=== PATIENT | female | born 1975 | race Two or more races ===

== ENCOUNTER 2022-12-11 09:27 | Inpatient (IN) | payer OTHER, SELFPAY ==
--- NOTE | ~2022-12-11 | CT_ITS ---
EXAMINATION: CT HEAD WITHOUT CONTRAST CLINICAL INFORMATION: Headache COMPARISON: None available. TECHNIQUE: Contiguous axial imaging was performed from the skull base to vertex without intravenous administration of contrast. This CT examination was performed using dose optimization techniques as appropriate, variously including the following: *Automated exposure control *Adjustment of mA and/or kV according to patient size (this includes techniques or standardized protocols for targeted exams where dose is matched to indication/reason for exam; i.e. extremities or head) *Use of iterative reconstruction technique DLP: 627.06 mGy-cm FINDINGS: The ventricles and sulci are normal in size and configuration. No acute hemorrhage, mass effect or shift is evident. Lee-white differentiation is maintained. In the posterior fossa, the brainstem, cerebellum and fourth ventricle image normally. The orbits and calvarium are intact. The paranasal sinuses and mastoid air cells are well pneumatized and clear. CT/CT head/brain wo IV con IMPRESSION: 1. Unremarkable noncontrast brain CT. No acute hemorrhage, mass effect or shift.
--- NOTE | ~2022-12-11 | CT_ITS ---
EXAMINATION: CT CERVICAL SPINE WITHOUT CONTRAST CLINICAL INFORMATION: Pain COMPARISON: None available. TECHNIQUE: Multiple helical unenhanced images were obtained through the cervical spine. Reformatted coronal and sagittal images were acquired from the helical data set. This CT examination was performed using dose optimization techniques as appropriate, variously including the following: *Automated exposure control *Adjustment of mA and/or kV according to patient size (this includes techniques or standardized protocols for targeted exams where dose is matched to indication/reason for exam; i.e. extremities or head) *Use of iterative reconstruction technique DLP: 497.28 mGy-cm FINDINGS: CT examination of the cervical spine shows no prevertebral soft tissue swelling. Vertebral body height and alignment are maintained. No fracture or subluxation is evident. The odontoid process, atlantoaxial and cervical thoracic junctions are intact. There is a 16 mm mass in the lower pole the left thyroid lobe. CT/CT cervical spine wo IV con IMPRESSION: 1. No acute fracture or subluxation of the cervical spine. 2. Left thyroid lobe 16mm mass, for which dedicated thyroid ultrasound is recommended for further evaluation and characterization. Fleischner guidelines were followed.
--- NOTE | ~2022-12-11 | XR_ITS ---
EXAMINATION: XR CHEST CLINICAL INFORMATION: Chest pain. COMPARISON: None available. TECHNIQUE: 2 views of the chest were obtained. FINDINGS: No significant abnormality is noted involving the heart, lungs, mediastinum, bony thorax or soft tissues. XR/XR chest 2V IMPRESSION: Unremarkable examination.
[2022-12-11 10:23] VITALS: BP 132/95; PULSE 76; RESP 12; O2SAT 95; BMI 32.4
[2022-12-11 13:05] VITALS: BP 142/88; PULSE 75; RESP 18; O2SAT 98
--- NOTE | 2022-12-11 13:14 | PC.NURSE ---
pt is alert and oriented, skin appropriate for ethnicity, respirations even and unlabored, pt reports having rashes that comes and goes while residing at the domestic correction-pt just found out that her biological mother just passes away, feeling depressed, not coming out of her room, feels like she might need her medications adjusted, denies si/hi. reported to have intermittent chest pain last week under her left breast-denies chest pain at this time, intermittent cough and vomiting.
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
--- NOTE | 2022-12-11 13:36 | ECG_ITS ---
Test Reason : MED CLEARANCE Blood Pressure : / mmHG Vent. Rate : 058 BPM Atrial Rate : 058 BPM P-R Int : 152 ms QRS Dur : 088 ms QT Int : 448 ms P-R-T Axes : 010 045 032 degrees QTc Int : 439 ms Sinus bradycardia Otherwise normal ECG No previous ECGs available Referred By: Anyi Weems Electronically Signed By:WILLA PEREZ
[2022-12-11 14:03] LABS: MANUAL DIFF FLAG NO
[2022-12-11 14:05] LABS: Basophils Absolute Auto 0.1 X10*3/uL (0.0-0.2); Basophils Percent Auto 0.9 % (0-2); Eosinophils Absolute Auto 0.4 X10*3/uL (0.0-0.4); Eosinophils Percent Auto 4.9 % (0-4); Hematocrit 37.1 % (37.0-47.0); Hemoglobin 12.9 g/dl (12.0-16.0); Imm Gran Abs Auto 0.03 X10*3/uL (0.00-0.03); Imm Gran Pct Auto 0.3 % (0.0-0.4); Lymphocytes Absolute Auto 2.7 X10*3/uL (1.2-4.9); Lymphocytes Percent Auto 30.1 % (20-40); Mean Corpuscular HGB Conc 34.8 g/dl (31.0-35.0); Mean Corpuscular Hemoglobin 30.9 pg (27.0-33.0); Mean Corpuscular Volume 88.8 fL (80.0-98.0); Mean Platelet Volume 10.2 fL (9.4-12.3); Monocytes Absolute Auto 0.4 X10*3/uL (0.1-1.2); Monocytes Percent Auto 4.4 % (2-11); Neutrophils Absolute Auto 5.3 x10*3/uL (2.0-8.3); Neutrophils Percent Auto 59.4 % (45-73); Platelet Count 282 X10*3/uL (160-400); Red Blood Count 4.18 X10*6/uL (4.20-5.50); Red Cell Distribution Width 12.2 % (11.0-16.0); White Blood Count 8.9 X10*3/uL (4.8-10.8)
[2022-12-11 14:15] LABS: Appearance Urine Clear; Color Urine Yellow; Glucose Urine UA Negative (Negative); Leukocyte Esterase Urine Negative (Negative); Nitrite Urine Negative (Negative); PH 5.5 (5.0-9.0); Specific Gravity - Urine 1.025 (1.005-1.025); Urine Blood Negative (Negative); Urine Ketones Negative (Negative); Urine Protein Negative (Neg-Trace)
[2022-12-11 14:18] LABS: Ethanol < 10 mg/dL
[2022-12-11 14:28] LABS: Alanine Aminotransferase 16 U/L (0-31); Albumin Level 3.7 g/dL (3.5-5.0); Alkaline Phosphatase 118 U/L (39-117); Anion Gap 9 (12-20); Aspartate Amino Transferase 22 U/L (5-31); Bilirubin Direct 0.2 mg/dL (0.0-0.5); Bilirubin Total 0.3 mg/dL (0.0-1.0); Blood Urea Nitrogen 9 mg/dL (9-16); Calcium 8.8 mg/dL (8.4-10.2); Carbon Dioxide 25 mmol/L (22-29); Chloride 109 mmol/L (96-108); Estimated Glomerular Filt Rate > 60; Glucose Random 104 mg/dL (60-115); Lipase 27 U/L (8-78); Magnesium 1.9 mg/dL (1.6-2.6); Sodium 139 mmol/L (135-145); Total Protein 6.9 g/dL (6.5-8.0); Troponin-I High Sensitivity < 2.7 ng/L (<3.5-17.0)
[2022-12-11 14:34] LABS: Amphetamine Screen Urine Not Detected (Not Detect); Barbiturates, Urine Not Detected (Not Detect); Benzodiazepines Screen Urine Not Detected (Not Detect); Cannabinoid Screen Urine Not Detected (Not Detect); Cocaine Screen Urine POSITIVE (Not Detect); Fentanyl, urine Not Detected (Not Detect); Opiate Screen Urine Not Detected (Not Detect); Phencyclidine Screen Urine Not Detected (Not Detect)
[2022-12-11 14:39] LABS: TSH reflex Free T4 0.85 uIU/mL (0.32-4.0)
[2022-12-11 18:57] VITALS: BP 123/86; PULSE 70; RESP 16; TEMP 36.2; O2SAT 100
[2022-12-11 18:59] LABS: COVID-19 Test Negative (Negative); IDNOW Serial# 08D9AD1C
[2022-12-11 23:45] VITALS: BP 125/81; PULSE 67; RESP 16; TEMP 36.3; O2SAT 98
[2022-12-12] MEDS: Prazosin HCL 1 MG CAPSULE 2 MG PO (01:24)
[2022-12-12] MEDS: Acetaminophen 325 MG TABLET 650 MG PO (01:25)
[2022-12-12] MEDS: Melatonin 3 MG TABLET 6 MG PO ×2 (01:25→20:34)
[2022-12-12] MEDS: Mirtazapine 7.5 MG TABLET PO (01:35)
[2022-12-12] MEDS: QUEtiapine Fumarate 100 MG TABLET PO (01:37)
[2022-12-12] MEDS: Ondansetron ODT 4 MG TAB.RAPDIS TRANSLINGU ×2 (03:36→11:11)
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
[2022-12-12 09:05] VITALS: BP 81/48; PULSE 76; RESP 16; TEMP 36.2; O2SAT 97
[2022-12-12 09:09] LABS: Alanine Aminotransferase 16 U/L (0-31); Albumin Level 3.6 g/dL (3.5-5.0); Alkaline Phosphatase 117 U/L (39-117); Anion Gap 11 (12-20); Aspartate Amino Transferase 17 U/L (5-31); Bilirubin Total 0.3 mg/dL (0.0-1.0); Blood Urea Nitrogen 14 mg/dL (9-16); Carbon Dioxide 25 mmol/L (22-29); Chloride 108 mmol/L (96-108); Cholesterol 152 mg/dL (<200); Creatinine Clr Calc Pharmacy 94.6; Estimated Glomerular Filt Rate > 60; Glucose Fasting 110 mg/dL (60-99); HDL Cholesterol 45 mg/dL (>40); LDL Cholesterol Calculated 89 mg/dL (<100); Potassium 4.5 mmol/L (3.3-5.1); Sodium 139 mmol/L (135-145); Total Protein 6.5 g/dL (6.5-8.0); Triglycerides 91 mg/dL (<150)
--- NOTE | 2022-12-12 09:30 | PC.NURSE ---
pt c/o dizziness, nausea. VS of 81/48, HR of 76. Orthos completed. Reported that she will get a black blanket like over my vision . Provider notified during morning rounds. No new orders at this time. Pt given fresh water and encouraged to drink. Resting quietly in bed at this tome.
[2022-12-12 09:47] VITALS: BP 83/79; BP 84/49; PULSE 65; PULSE 71
[2022-12-12 09:48] VITALS: BP 79/51; PULSE 83
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
[2022-12-12 11:01] VITALS: BP 104/58; PULSE 63
--- NOTE | 2022-12-12 12:53 | PM.EVENT ---
Event Note Date of Service: 12/14/22 Event Note: Medical consult for patient with hypotension. Patient's BP 81/48 measured this morning, with repeats as low as 79/51. Patient currently at 104/58. Patient has been symptomatic: Complaints of lightheadedness, dizziness. States last night had a near syncopal episode. Patient currently on Seroquel and prazosin. Patient states she has been taking his medications since June and been mostly compliant, however records indicate was only given 14 tablets of prazosin in June and has not had a refill since then. Patient was given prazosin 2 mg last night at 01:24. Patient does not appear hypovolemic, does not report any significant GI losses. Hypotension most likely medication induced from prazosin. Will hold prazosin and quetiapine for now. Encourage p.o. fluids. Monitor BP closely. Will continue following for now. Time Spent With Patient Time: Total time managing care of this patient today ____ minutes.
[2022-12-12 19:55] VITALS: BP 95/60; PULSE 75; RESP 18; TEMP 36.6; O2SAT 97
[2022-12-12] MEDS: NaPROXEN 500 MG TABLET PO (20:34)
[2022-12-12] MEDS: Mirtazapine 15 MG TABLET PO (20:34)
[2022-12-12] MEDS: Milk of Magnesia 30 ML ORAL.SUSP PO (21:13)
--- NOTE | 2022-12-13 00:06 | PC.NURSE ---
Ivy was admitted to [facility] for safety, medication management and stabilization, diagnosis MDD and CAMDEN. Ivy is post fall, BP was on the low side of normal, denies dizziness, reports drinking fluids, denies nausea, med adherent, ad-ciarra with steady gait. Continues on 5 min unit safety observations for falls.
[2022-12-13 08:59] VITALS: BP 108/57; PULSE 81; RESP 18; TEMP 36.8; O2SAT 99
[2022-12-13] MEDS: Escitalopram Oxalate 20 MG TABLET PO (09:04)
[2022-12-13] MEDS: Loratadine 10 MG TABLET PO (09:04)
[2022-12-13] MEDS: NaPROXEN 500 MG TABLET PO ×2 (09:04→20:16)
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
[2022-12-13 16:20] VITALS: BP 108/57; PULSE 81; O2SAT 99
[2022-12-13] MEDS: Ondansetron ODT 4 MG TAB.RAPDIS TRANSLINGU (16:44)
[2022-12-13 19:50] VITALS: BP 107/59; PULSE 68; RESP 18; TEMP 36.6; O2SAT 99
[2022-12-13] MEDS: Melatonin 3 MG TABLET 6 MG PO (20:15)
[2022-12-13] MEDS: Mirtazapine 15 MG TABLET PO ×2 (20:17→20:22)
[2022-12-14] MEDS: NaPROXEN 500 MG TABLET PO ×2 (03:08→16:52)
[2022-12-14] MEDS: Acetaminophen 325 MG TABLET 650 MG PO (05:01)
[2022-12-14] MEDS: Loratadine 10 MG TABLET PO (08:21)
[2022-12-14] MEDS: Escitalopram Oxalate 20 MG TABLET PO (08:21)
[2022-12-14 08:41] VITALS: BP 110/60; PULSE 67; RESP 20; TEMP 36.6; O2SAT 97
--- NOTE | 2022-12-14 13:55 | HO.PSYCHPN ---
Subjective Subjective Date of Service: 12/14/22 Reason For Visit: Depression Interim History: Patient reports constant pain in her knees, neck, back, hip. PT evaluated patient. Recommended knee braces. Says Armando isn't controlling her pain. Discussed Gabapentin. Patient agreeable to trial of same. Discussed risk of sedation and dizziness. Continues on 5 min checks for fall precaution. Denies SI. Continues depressed. Review of Systems Review of Systems Yes all other systems are reviewed and are negative Constitutional: Reports as per HPI Eyes: Reports as per HPI Reports as per HPI Cardiovascular: Reports as per HPI Respiratory: Reports as per HPI Gastrointestinal: Reports as per HPI Musculoskeletal: Reports as per HPI Skin/Breast: Reports as per HPI Reports as per HPI Psychiatric: Reports as per HPI Endocrine: Reports as per HPI Hematologic/Lymphatic: Reports as per HPI Allergic/Immunologic: Reports as per HPI Mental Status Exam Mental Status Exam Narrative: Pt is alert and oriented; behavior is cooperative and calm; patient is not in distress; dressed in casual attire; mood is described as depressed ; eye contact appropriate; Speech is normal rate, volume and prosody and not pressured; no psychomotor agitation/retardation present; thought process is organized and goal directed; Thought content is on tx; otherwise pertinent to relevant topics and without any delusional content, paranoid ideations or grandiosity; denies HI. Pt reports passive suicidal ideation. There is no evidence of perceptual disturbance. Patients insight and judgment are poor. Diagnostics Vital Signs (24Hr): Vital Signs - 24 hr 12/13/22 16:20 12/13/22 19:50 12/14/22 08:41 Temperature 97.8 F 97.9 F Pulse Rate 81 68 67 Respiratory Rate 18 20 Blood Pressure 108/57 L 107/59 L 110/60 Pulse Oximetry 99 99 97 Oxygen Delivery Method Room Air Room Air BMI result Body Mass Index 32.4 Labs 12/11/22 13:59 12/12/22 08:39 Imaging Radiology Impressions: ITS Impressions Chest X-Ray 12/11/22 14:24 IMPRESSION: Unremarkable examination. Cervical Spine CT 12/11/22 14:48 IMPRESSION: 1. No acute fracture or subluxation of the cervical spine. 2. Left thyroid lobe 16mm mass, for which dedicated thyroid ultrasound is recommended for further evaluation and characterization. Fleischner guidelines were followed. Head CT 12/11/22 14:48 IMPRESSION: 1. Unremarkable noncontrast brain CT. No acute hemorrhage, mass effect or shift. Medications Medications Current Medications Acetaminophen (Acetaminophen 325 Mg Tablet) 650 mg PO Q6H PRN PRN Reason: Headache/Pain Mild Scale (1-3) Last Admin: 12/14/22 05:01 Dose: 650 mg Al Hydroxide/Mg Hydroxide (Magnesium Hydrox/Alum Hydrox 30 Ml Oral.Susp) 30 ml PO Q6H PRN PRN Reason: Heartburn/Nausea Escitalopram Oxalate (Escitalopram Oxalate 20 Mg Tablet) 20 mg PO DAILY [facility] Last Admin: 12/14/22 08:21 Dose: 20 mg Gabapentin (Gabapentin 100 Mg Capsule) 200 mg PO TID KARTHIKEYAN Loratadine (Loratadine 10 Mg Tablet) 10 mg PO DAILY [facility] Last Admin: 12/14/22 08:21 Dose: 10 mg Magnesium Hydroxide (Milk Of Magnesia 30 Ml Oral.Susp) 30 ml PO DAILY PRN PRN Reason: Constipation Last Admin: 12/12/22 21:13 Dose: 30 ml Melatonin (Melatonin 3 Mg Tablet) 6 mg PO BEDTIME PRN PRN Reason: insomnia Last Admin: 12/13/22 20:15 Dose: 6 mg Mirtazapine (Mirtazapine 15 Mg Tablet) 15 mg PO BEDTIME [facility] Last Admin: 12/13/22 20:17 Dose: 15 mg Mirtazapine (Mirtazapine 15 Mg Tablet) 15 mg PO BEDTIME PRN PRN Reason: Insomnia Naproxen (Naproxen 500 Mg Tablet) 500 mg PO BID PRN PRN Reason: Pain, Moderate Last Admin: 12/14/22 03:08 Dose: 500 mg Olanzapine (Olanzapine 5 Mg Tablet) 5 mg PO Q6H PRN PRN Reason: Agitation Ondansetron HCl (Ondansetron Odt 4 Mg Tab.Rapdis) 4 mg TRANSLINGU Q6H PRN PRN Reason: nausea/vomiting Last Admin: 12/13/22 16:44 Dose: 4 mg Prazosin HCl (Prazosin Hcl 1 Mg Capsule) 2 mg PO BEDTIME KARTHIKEYAN; Protocol Last Admin: 12/12/22 01:24 Dose: 2 mg Allergies Allergies Allergy/AdvReac Type Severity Reaction Status Date / Time latex Allergy Severe edema Verified 12/11/22 13:35 Seasonal Allergies Allergy Intermediate unknown Verified 12/11/22 13:35 Assessment & Plan Assessment & Plan (1) MDD (major depressive disorder), recurrent episode, severe: Status: Acute Code(s): F33.2 - Major depressive disorder, recurrent severe without psychotic features (2) CAMDEN (generalized anxiety disorder): Status: Acute Code(s): F41.1 - Generalized anxiety disorder (3) Post traumatic stress disorder: Status: Acute Code(s): F43.10 - Post-traumatic stress disorder, unspecified Plan Patient is a 47 year old female with hx of MDD and CAMDEN who self presented to [facility] secondary to increased depressive symptoms. Plan: CV 15 minute safety checks Referral for therapist Referral for prescriber Hospitalist consult placed d/t dizziness and decreased BP Continue home medications. DC: Seroquel d/t c/o restless legs Increase: Remeron to 15mg PO bedtime Lexapro to 20mg PO daily Start: Zyprexa 5mg PO Q6HR PRN agitation Remeron 15mg PO bedtime PRN insomnia 12/13: Continue current plan and response to medication. Remeron scheduled. Monitor BP. 12/14: Start Gabapentin 200 mg TID and titrate as tolerated targeting pain and anxiety. Otherwise continue current treatment plan. Reason for continued inpatient stay Substantial Risk for: harm to self and rapid decompensation Time Spent With Patient Time: Total time managing care of this patient today ____ minutes.
[2022-12-14] MEDS: Gabapentin 100 MG CAPSULE 200 MG PO ×2 (15:23→20:48)
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
[2022-12-14 20:30] VITALS: BP 120/78; PULSE 72; TEMP 36.3; O2SAT 96
[2022-12-14] MEDS: Mirtazapine 15 MG TABLET PO (20:48)
[2022-12-14] MEDS: Melatonin 3 MG TABLET 6 MG PO (20:48)
[2022-12-15] MEDS: Mirtazapine 15 MG TABLET PO ×2 (00:41→20:43)
[2022-12-15] MEDS: NaPROXEN 500 MG TABLET PO (00:41)
[2022-12-15 09:12] VITALS: BP 117/67; PULSE 75; RESP 18; TEMP 36.3; O2SAT 98
[2022-12-15] MEDS: Loratadine 10 MG TABLET PO (09:18)
[2022-12-15] MEDS: Ondansetron ODT 4 MG TAB.RAPDIS TRANSLINGU (09:18)
[2022-12-15] MEDS: Escitalopram Oxalate 20 MG TABLET PO (09:18)
[2022-12-15] MEDS: Gabapentin 100 MG CAPSULE 200 MG PO ×3 (09:18→20:42)
--- NOTE | 2022-12-15 11:58 | HO.PSYCHPN ---
Subjective Subjective Date of Service: 12/15/22 Reason For Visit: Depression Subjective Notes: Conditional Voluntary Interim History: Reviewed in team and . Patient reports feeling good today. Patient stated, I'm trying to figure out my next step. I feel like the medications are helping me and I'm good mentally . Patient reports she plans on speaking with the family welfare social work professor about perhaps attending a outpatient program near her long term. Medication Compliance: Yes Side effects from medications: No Attending Groups: Yes Review of Systems Constitutional: Reports as per HPI Eyes: Reports as per HPI Reports as per HPI Cardiovascular: Reports as per HPI Respiratory: Reports as per HPI Gastrointestinal: Reports as per HPI Genitourinary: Reports as per HPI Musculoskeletal: Reports as per HPI Skin/Breast: Reports as per HPI Reports as per HPI Psychiatric: Reports as per HPI Endocrine: Reports as per HPI Hematologic/Lymphatic: Reports as per HPI Allergic/Immunologic: Reports as per HPI Mental Status Exam Mental Status Exam Narrative: Pt is alert and oriented; behavior is cooperative, friendly and calm; dressed in casual attire; mood is described as good ; eye contact appropriate; Speech is normal rate, volume and prosody and not pressured; no psychomotor agitation/retardation present; thought process is organized and goal directed; Thought content is on tx; otherwise pertinent to relevant topics and without any delusional content, paranoid ideations or grandiosity; denies SI/HI. There is no evidence of perceptual disturbance. Patients insight and judgment are fair. Diagnostics Vital Signs (24Hr): Vital Signs - 24 hr 12/14/22 20:30 12/15/22 09:12 Temperature 97.4 F 97.3 F Pulse Rate 72 75 Respiratory Rate 18 Blood Pressure 120/78 117/67 Pulse Oximetry 96 98 Oxygen Delivery Method Room Air Room Air BMI result Body Mass Index 32.4 Labs 12/11/22 13:59 12/12/22 08:39 Imaging Radiology Impressions: ITS Impressions Chest X-Ray 12/11/22 14:24 IMPRESSION: Unremarkable examination. Cervical Spine CT 12/11/22 14:48 IMPRESSION: 1. No acute fracture or subluxation of the cervical spine. 2. Left thyroid lobe 16mm mass, for which dedicated thyroid ultrasound is recommended for further evaluation and characterization. Fleischner guidelines were followed. Head CT 12/11/22 14:48 IMPRESSION: 1. Unremarkable noncontrast brain CT. No acute hemorrhage, mass effect or shift. Medications Medications Current Medications Acetaminophen (Acetaminophen 325 Mg Tablet) 650 mg PO Q6H PRN PRN Reason: Headache/Pain Mild Scale (1-3) Last Admin: 12/14/22 05:01 Dose: 650 mg Al Hydroxide/Mg Hydroxide (Magnesium Hydrox/Alum Hydrox 30 Ml Oral.Susp) 30 ml PO Q6H PRN PRN Reason: Heartburn/Nausea Escitalopram Oxalate (Escitalopram Oxalate 20 Mg Tablet) 20 mg PO DAILY [facility] Last Admin: 12/15/22 09:18 Dose: 20 mg Gabapentin (Gabapentin 100 Mg Capsule) 200 mg PO TID [facility]THIKEYAN Last Admin: 12/15/22 09:18 Dose: 200 mg Loratadine (Loratadine 10 Mg Tablet) 10 mg PO DAILY [facility] Last Admin: 12/15/22 09:18 Dose: 10 mg Magnesium Hydroxide (Milk Of Magnesia 30 Ml Oral.Susp) 30 ml PO DAILY PRN PRN Reason: Constipation Last Admin: 12/12/22 21:13 Dose: 30 ml Melatonin (Melatonin 3 Mg Tablet) 6 mg PO BEDTIME PRN PRN Reason: insomnia Last Admin: 12/14/22 20:48 Dose: 6 mg Mirtazapine (Mirtazapine 15 Mg Tablet) 15 mg PO BEDTIME [facility] Last Admin: 12/14/22 20:48 Dose: 15 mg Mirtazapine (Mirtazapine 15 Mg Tablet) 15 mg PO BEDTIME PRN PRN Reason: Insomnia Last Admin: 12/15/22 00:41 Dose: 15 mg Naproxen (Naproxen 500 Mg Tablet) 500 mg PO BID PRN PRN Reason: Pain, Moderate Last Admin: 12/15/22 00:41 Dose: 500 mg Olanzapine (Olanzapine 5 Mg Tablet) 5 mg PO Q6H PRN PRN Reason: Agitation Ondansetron HCl (Ondansetron Odt 4 Mg Tab.Rapdis) 4 mg TRANSLINGU Q6H PRN PRN Reason: nausea/vomiting Last Admin: 12/15/22 09:18 Dose: 4 mg Prazosin HCl (Prazosin Hcl 1 Mg Capsule) 2 mg PO BEDTIME KARTHIKEYAN; Protocol Last Admin: 12/12/22 01:24 Dose: 2 mg Allergies Allergies Allergy/AdvReac Type Severity Reaction Status Date / Time latex Allergy Severe edema Verified 12/11/22 13:35 Seasonal Allergies Allergy Intermediate unknown Verified 12/11/22 13:35 Assessment & Plan Assessment & Plan (1) MDD (major depressive disorder), recurrent episode, severe: Status: Acute Code(s): F33.2 - Major depressive disorder, recurrent severe without psychotic features (2) CAMDEN (generalized anxiety disorder): Status: Acute Code(s): F41.1 - Generalized anxiety disorder (3) Post traumatic stress disorder: Status: Acute Code(s): F43.10 - Post-traumatic stress disorder, unspecified Plan Patient is a 47 year old female with hx of MDD and CAMDEN who self presented to [facility] secondary to increased depressive symptoms. Plan: CV 15 minute safety checks Referral for therapist Referral for prescriber Hospitalist consult placed d/t dizziness and decreased BP Continue home medications. DC: Seroquel d/t c/o restless legs Increase: Remeron to 15mg PO bedtime Lexapro to 20mg PO daily Start: Zyprexa 5mg PO Q6HR PRN agitation Remeron 15mg PO bedtime PRN insomnia 12/13: Continue current plan and response to medication. Remeron scheduled. Monitor BP. 12/14: Start Gabapentin 200 mg TID and titrate as tolerated targeting pain and anxiety. Otherwise continue current treatment plan. 12/15: Patient reports feeling good today. Patient stated, I'm trying to figure out my next step. I feel like the medications are helping me and I'm good mentally . Patient reports she plans on speaking with the family welfare social work professor about perhaps attending a outpatient program near her long term. Patient educated on: diagnosis, medication risk/benefits and therapeutic strategies Informed Consent: understands Reason for continued inpatient stay Substantial Risk for: med/psych decompensation Time Spent With Patient Time: Total time managing care of this patient today _30___ minutes.
[2022-12-15 18:00] VITALS: BP 102/51; PULSE 80; RESP 18; TEMP 37; O2SAT 97
[2022-12-15] MEDS: Acetaminophen 325 MG TABLET 650 MG PO (20:43)
[2022-12-15] MEDS: Melatonin 3 MG TABLET 6 MG PO (20:44)
[2022-12-16] MEDS: Mirtazapine 15 MG TABLET PO (00:31)
[2022-12-16 08:46] VITALS: BP 120/83; PULSE 79; RESP 18; TEMP 36.6; O2SAT 99
[2022-12-16] MEDS: Gabapentin 100 MG CAPSULE 200 MG PO (09:11)
[2022-12-16] MEDS: Escitalopram Oxalate 20 MG TABLET PO (09:11)
[2022-12-16] MEDS: Loratadine 10 MG TABLET PO (09:11)
--- NOTE | 2022-12-16 10:03 | PM.PSYDC ---
DS: Providers Provider Date of Service: 12/16/22 Date of admission: 12/11/22 23:22 Date of discharge: 12/16/22 Primary care physician: Christina Physician Admitting clinician: Lupe Finn Attending physician on admission: Cole Irving Consults: 12/12/22 10:24 Consult to Hospitalist Routine Comment: Consulting Provider: Hospitalist Reason For Exam: Low BP/dizziness Attending physician on discharge: Cole Irving Discharging clinician: Lupe Finn DS: Diagnosis Discharge Diagnosis (1) MDD (major depressive disorder), recurrent episode, severe: Status: Acute (2) CAMDEN (generalized anxiety disorder): Status: Acute (3) Post traumatic stress disorder: Status: Acute DS: Medications Discharge Medications Home Medications: Previous Rx's Medication Instructions Recorded albuterol sulfate 90 mcg/actuation 2 puff inhalation Q6H PRN 12/11/22 aerosol inhaler shortness of breath or wheezing #6.7 grams fluticasone furoate 100 1 inh inhalation DAILY #30 ea 12/11/22 mcg/actuation blister powder for inhalation (Arnuity Ellipta) albuterol sulfate 90 mcg/actuation 2 puff inhalation RQ4H PRN 12/16/22 aerosol inhaler (Ventolin HFA) Shortness Of Breath/Wheezing #6.7 grams cetirizine 10 mg tablet 10 mg PO DAILY 30 days #30 tabs 12/16/22 citalopram 20 mg tablet 20 mg PO DAILY 30 days #30 tabs 12/16/22 gabapentin 100 mg capsule 200 mg PO TID 30 days #180 caps 12/16/22 melatonin 3 mg tablet 6 mg PO BEDTIME PRN insomnia 30 12/16/22 days #60 tabs mirtazapine 15 mg tablet 15 mg PO BEDTIME 30 days #30 tabs 12/16/22 mirtazapine 15 mg tablet 15 mg PO BEDTIME PRN Insomnia 30 12/16/22 days #30 tabs naproxen 500 mg tablet (Naprosyn) 500 mg PO BID PRN Pain, Moderate 12/16/22 30 days #60 tabs prazosin 2 mg capsule 2 mg PO BEDTIME 30 days #30 caps 12/16/22 Mental Status Exam Mental Status Exam Narrative: Pt is alert and oriented; behavior is cooperative, friendly and calm; dressed in casual attire; mood is described as good ; eye contact appropriate; Speech is normal rate, volume and prosody and not pressured; no psychomotor agitation/retardation present; thought process is organized and goal directed; Thought content is on discharge; otherwise pertinent to relevant topics and without any delusional content, paranoid ideations or grandiosity; denies SI/HI. There is no evidence of perceptual disturbance. Patients insight and judgment are fair. Data Data Completed and Pending Completed studies during hospitalization [Text1]: 12/11/22 12/11/22 12/11/22 13:59 13:59 13:59 WBC 8.9 RBC 4.18 L Hgb 12.9 Hct 37.1 MCV 88.8 MCH 30.9 MCHC 34.8 RDW 12.2 Plt Count 282 MPV 10.2 Immature Gran % (Auto) 0.3 Neut % (Auto) 59.4 Lymph % (Auto) 30.1 [place] % (Auto) 4.4 Eos % (Auto) 4.9 H Baso % (Auto) 0.9 Lymph # (Auto) 2.7 [place] # (Auto) 0.4 Eos # (Auto) 0.4 Baso # (Auto) 0.1 Abs Immat Gran (auto) 0.03 Absolute Neuts (auto) 5.3 Absolute Nucleated RBC 0.000 Nucleated RBC % (auto) 0.0 Sodium 139 Potassium 4.0 Chloride 109 H Carbon Dioxide 25 Anion Gap 9 L BUN 9 Creatinine 0.69 Estim Creat Clear Calc 100.0 Estimated GFR > 60 Random Glucose 104 Fasting Glucose Calcium 8.8 Magnesium 1.9 Total Bilirubin 0.3 Direct Bilirubin 0.2 AST 22 ALT 16 Alkaline Phosphatase 118 H Troponin I High Sens < 2.7 Total Protein 6.9 Albumin 3.7 Triglycerides Cholesterol LDL Cholesterol, Calc HDL Cholesterol Lipase 27 TSH 0.85 Urine Color Urine Appearance Urine pH Ur Specific Ubly Urine Protein Urine Glucose (UA) Urine Ketones Urine Blood Urine Nitrite Ur Leukocyte Esterase Urine Opiates Screen Urine Fentanyl Screen Ur Barbiturates Screen Ur Phencyclidine Scrn Ur Amphetamines Screen U Benzodiazepines Scrn Urine Cocaine Screen U Marijuana (THC) Screen Ethyl Alcohol COVID-19 ([facility]IN[facility]) COVID-19 Clin Com TB Test (T-Spot) Com TB Test Nil Control TB Test Panel A TB Test Panel B TB Test Positive Cntrl 12/11/22 12/11/22 12/11/22 13:59 14:05 14:05 WBC RBC Hgb Hct MCV MCH MCHC RDW Plt Count MPV Immature Gran % (Auto) Neut % (Auto) Lymph % (Auto) [place] % (Auto) Eos % (Auto) Baso % (Auto) Lymph # (Auto) [place] # (Auto) Eos # (Auto) Baso # (Auto) Abs Immat Gran (auto) Absolute Neuts (auto) Absolute Nucleated RBC Nucleated RBC % (auto) Sodium Potassium Chloride Carbon Dioxide Anion Gap BUN Creatinine Estim Creat Clear Calc Estimated GFR Random Glucose Fasting Glucose Calcium Magnesium Total Bilirubin Direct Bilirubin AST ALT Alkaline Phosphatase Troponin I High Sens Total Protein Albumin Triglycerides Cholesterol LDL Cholesterol, Calc HDL Cholesterol Lipase TSH Urine Color Yellow Urine Appearance Clear Urine pH 5.5 Ur Specific Ubly 1.025 Urine Protein Negative Urine Glucose (UA) Negative Urine Ketones Negative Urine Blood Negative Urine Nitrite Negative Ur Leukocyte Esterase Negative Urine Opiates Screen Not Detected Urine Fentanyl Screen Not Detected Ur Barbiturates Screen Not Detected Ur Phencyclidine Scrn Not Detected Ur Amphetamines Screen Not Detected U Benzodiazepines Scrn Not Detected Urine Cocaine Screen POSITIVE H U Marijuana (THC) Screen Not Detected Ethyl Alcohol < 10 COVID-19 (DINH) COVID-19 Clin Com TB Test (T-Spot) Com TB Test Nil Control TB Test Panel A TB Test Panel B TB Test Positive Cntrl 12/11/22 12/12/22 12/15/22 18:39 08:39 15:17 WBC RBC Hgb Hct MCV MCH MCHC RDW Plt Count MPV Immature Gran % (Auto) Neut % (Auto) Lymph % (Auto) [place] % (Auto) Eos % (Auto) Baso % (Auto) Lymph # (Auto) [place] # (Auto) Eos # (Auto) Baso # (Auto) Abs Immat Gran (auto) Absolute Neuts (auto) Absolute Nucleated RBC Nucleated RBC % (auto) Sodium 139 Potassium 4.5 Chloride 108 Carbon Dioxide 25 Anion Gap 11 L BUN 14 Creatinine 0.73 Estim Creat Clear Calc 94.6 Estimated GFR > 60 Random Glucose Fasting Glucose 110 H Calcium 9.0 Magnesium Total Bilirubin 0.3 Direct Bilirubin AST 17 ALT 16 Alkaline Phosphatase 117 Troponin I High Sens Total Protein 6.5 Albumin 3.6 Triglycerides 91 Cholesterol 152 LDL Cholesterol, Calc 89 HDL Cholesterol 45 Lipase TSH Urine Color Urine Appearance Urine pH Ur Specific Ubly Urine Protein Urine Glucose (UA) Urine Ketones Urine Blood Urine Nitrite Ur Leukocyte Esterase Urine Opiates Screen Urine Fentanyl Screen Ur Barbiturates Screen Ur Phencyclidine Scrn Ur Amphetamines Screen U Benzodiazepines Scrn Urine Cocaine Screen U Marijuana (THC) Screen Ethyl Alcohol COVID-19 (DIN[facility]) Negative COVID-19 Clin Com See Note TB Test (T-Spot) Com Pending TB Test Nil Control Pending TB Test Panel A Pending TB Test Panel B Pending TB Test Positive Cntrl Pending Imaging Diagnostic Imaging Impressions Chest X-Ray 12/11/22 14:24 IMPRESSION: Unremarkable examination. Cervical Spine CT 12/11/22 14:48 IMPRESSION: 1. No acute fracture or subluxation of the cervical spine. 2. Left thyroid lobe 16mm mass, for which dedicated thyroid ultrasound is recommended for further evaluation and characterization. Fleischner guidelines were followed. Head CT 12/11/22 14:48 IMPRESSION: 1. Unremarkable noncontrast brain CT. No acute hemorrhage, mass effect or shift. DS: Summary Hospital Course Hospital Course: Patient is a 47 year old female with hx of MDD and CAMDEN who self presented to [facility] secondary to increased depressive symptoms. During admission assessment pt presents calm and cooperative. Patient stated, I came to the hospital because my depression kept getting worse. I think about my adopted Mother passing away in October and not knowing anyone in the alf I'm in or going anywhere has made me feel this way . Patient reports passive suicidal ideation; pt stated, I wouldn't kill myself but I don't care if I . Patient denies HI/AH/VH. Utox positive for cocaine. Pt reports she uses cocaine, marijuana and drinks alcohol. Patient reports she wants help fixing my medications . Patient reports she does not have a outpatient therapist or prescriber. During hospital stay, continued home medications. DC: Seroquel d/t c/o restless legs Increase: Remeron to 15mg PO bedtime Lexapro to 20mg PO daily Start: Zyprexa 5mg PO Q6HR PRN agitation Remeron 15mg PO bedtime PRN insomnia Started Gabapentin 200 mg TID and titrate as tolerated targeting pain and anxiety. Patient reports feeling good today. Patient stated, I'm trying to figure out my next step. I feel like the medications are helping me and I'm good mentally . Patient reports she plans on speaking with the web content & social media manager about perhaps attending a outpatient program near her alf. Patient observed laughing and joking with peers and staff. Patient reports feeling good ; she is looking forward to going to respite. Patient plans on following up with outpatient providers. Patient presents future oriented stating I know I'll be okay. I'm looking forward to figuring things out . Pt denies SI/HI/VH/AH at this time. Time spent discussing smoking cessation with patient: 3 to 10 minutes Status at Discharge Cognitive/behavioral status at discharge: Patient was interviewed prior to discharge and found to be fully oriented and without any SI or HI. Patient has insight and demonstrates good judgment in terms of wanting to pursue treatment. Patient is not in imminent risk of harm to self or others and has a safety plan that includes presenting to the closest ER or calling 911 if feeling unsafe. Patient has been observed closely by nursing and unit staff throughout admission; patient has not engaged in any behaviors that suggest dangerousness to self or others and has demonstrated appropriate behaviors and impulse control. Functional status at discharge: independent ambulation Overall status at discharge: patient is back to baseline Time Spent with Patient Time attestation: Total time managing care of this patient today _30___ minutes. Time spent: Less than 30 minutes Discharge Plan Discharge Anticipated Discharge Date/Time: 12/16/22 11:45 Patient Disposition: Xfer to Respite Facility Discharge Diagnosis: MDD, CAMDEN, PTSD Referrals: Physician,None [Primary Care Provider] - 1 Week Discharge Medications: New albuterol sulfate 90 mcg/actuation HFA aerosol inhaler 2 puff inhalation Q6H PRN (Reason: shortness of breath or wheezing) Qty: 6.7 0RF Arnuity Ellipta 100 mcg/actuation blister with device 1 inh inhalation DAILY Qty: 30 0RF albuterol sulfate [Ventolin HFA] 90 mcg/actuation Hfa Aerosol Inhaler 2 puff inhalation RQ4H PRN (Reason: Shortness Of Breath/Wheezing) Qty: 6.7 0RF mirtazapine 15 mg Tablet 15 mg PO BEDTIME 30 Days Qty: 30 0RF gabapentin 100 mg Capsule 200 mg PO TID 30 Days Qty: 180 0RF mirtazapine 15 mg Tablet 15 mg PO BEDTIME PRN (Reason: Insomnia) 30 Days Qty: 30 0RF Continued cetirizine 10 mg tablet 10 mg PO DAILY 30 Days Qty: 30 0RF melatonin 3 mg tablet 6 mg PO BEDTIME PRN (Reason: insomnia) 30 Days Qty: 60 0RF citalopram 20 mg tablet 20 mg PO DAILY 30 Days Qty: 30 0RF naproxen [Naprosyn] 500 mg tablet 500 mg PO BID PRN (Reason: Pain, Moderate) 30 Days Qty: 60 0RF Rx Instructions: One tablet as needed in the morning and at bedtime for pain. Discontinued quetiapine 100 mg tablet 100 mg PO BEDTIME prazosin 2 mg capsule 2 mg PO BEDTIME mirtazapine 7.5 mg tablet 7.5 mg PO BEDTIME Discharge Orders: Discharge Order (Routine); Ordered 12/16/22 Ordered By: Lupe Finn Diet: Regular diet Activity on Discharge: As tolerated Stand Alone Forms: Patient Portal Discharge page Care Plan Goals: Maintain mood and safe behaviors Take medications as prescribed Continue to pursue sobriety Practice coping skills Continue with outpatient providers and reach out to them as needed Health Concerns: Mood stability and behaviors Sobriety Plan of Treatment: Follow up with your PCP, psychiatric provider and other outpatient providers regarding above concerns Take medications as prescribed Assessment: Patient was interviewed prior to discharge and found to be fully oriented and without any SI or HI. Patient has insight and demonstrates good judgment in terms of wanting to pursue treatment. Patient is not in imminent risk of harm to self or others and has a safety plan that includes presenting to the closest ER or calling 911 if feeling unsafe. Patient has been observed closely by nursing and unit staff throughout admission; patient has not engaged in any behaviors that suggest dangerousness to self or others and has demonstrated appropriate behaviors and impulse control.
[2022-12-17 19:39] LABS: TS Negative Control Passed; TS Panel A 0; TS Panel B 0; TS Positive Control Passed; TSpotTB Negative (Negative)
== END 2022-12-16 11:40 | DRG 751 ==
LOC: HO.ED 16:02 → HO.PADLT16 23:25
PROVIDERS: Physician Assistant Medical; Admitting Provider Psychiatry & Neurology Psychiatry; Emergency Provider Emergency Medicine; Responsible Provider Registered Nurse; Visit Provider Psychiatry & Neurology Psychiatry
DX: F33.2 Major depressive disorder, recurrent severe without psychotic features (principal); I95.9 Hypotension, unspecified; F41.1 Generalized anxiety disorder; F43.10 Post-traumatic stress disorder, unspecified; Z20.822 Contact with and (suspected) exposure to COVID-19; Z87.891 Personal history of nicotine dependence; Z91.040 Latex allergy status; Z59.01 Sheltered homelessness; Z79.51 Long term (current) use of inhaled steroids; Z79.899 Other long term (current) drug therapy
CPT/HCPCS: 36415; 70450; 71046; 72125; 80048; 80053; 80061; 80076; 80307; 81003; 83690; 83735; 84443; 84484; 85025; 86481; 87635; 93005; 97162; 99285; S9485

== ENCOUNTER → 2022-12-11 23:22 | Outpatient (BNV) | payer OTHER, SELFPAY | PROVIDERS: Admitting Provider Psychiatry & Neurology Psychiatry; Emergency Provider Emergency Medicine; Responsible Provider Registered Nurse; Visit Provider Psychiatry & Neurology Psychiatry | DX: F43.11 Post-traumatic stress disorder, acute (principal); F33.2 Major depressive disorder, recurrent severe without psychotic features; F41.1 Generalized anxiety disorder | CPT/HCPCS: 90792; 99231; 99232; 99238 ==

== ENCOUNTER → 2023-03-05 11:00 | Outpatient (BNV) | payer OTHER, SELFPAY | PROVIDERS: Visit Provider Psychiatry & Neurology Psychiatry | DX: F43.10 Post-traumatic stress disorder, unspecified (principal); F41.1 Generalized anxiety disorder; F33.2 Major depressive disorder, recurrent severe without psychotic features | CPT/HCPCS: 90792; 99213; 99214; 99499 ==

== ENCOUNTER 2023-03-20 11:30 | Outpatient (RCR) | payer OTHER, SELFPAY ==
[2023-03-03 10:14] VITALS: BP 100/62; PULSE 80; TEMP 36.5
[2023-03-03 10:20] VITALS: BMI 34.9
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
[2023-03-05 11:42] VITALS: BP 92/62; PULSE 88
--- NOTE | 2023-03-05 17:42 | HO.PHP ---
The client's case was reviewed and opened in treatment team.
--- NOTE | 2023-03-05 21:41 | HO.PHPPROGNO ---
Subjective Subjective Date of Service: 03/05/23 Reason For Visit: PTSD Interim History: Elian reports sleeping better with prazosin now that she is taking it again. Slept 3 hours in a row. Still feeling tired but better rested. She also has been taking the ABilify which is causing her some nausea. She vomitted the first night she took it. SHe did not cut back on her tablet like we had discussed (for any AE), and says she thinks she is adjusting, although slept with a trash can by her side the past 2 nights on account of still experiencing some nausea. Today her BP is 92/62 (with taking prazosin). She feels fine. She has a binder/organizer with her and reviews a umber of concerns she has listed in her notebook. Most of conversation is focused on housing concerns. She has a hospice case manager at [facility], Renee Coy who has not been getting back to her. She has completed paperwork but finds waiting to hear back very frustrating. She reportedly had recent lab work done this month at [facility] when following up w [facility] for STI testing, was negative. She continues to experience night sweats, irritability, mood swings and other symptoms (which could possibly be related to being perimenopausal symptoms, or are aggrevatating the PTSD) and Also reportedly lab work came back as fine for thyroid function she believes. She does not have a PCP, although was given some names (Deb Cornejo or Brenda Cho at [facility]) so we gave them a call and patient was put on a waiting list for the time being, with request to be expedited due to multiple medical concerns and is NIDDM. She also has some mobility issues due to bilateral chronic knee pain/instability due to previous injuries and falls. She is requesting this provider write a generic letter to support her request for housing due to mental health issues, but does not have anyone this needs to be addressed to at this time. Medication Compliance: Intermittent Side effects from medications: Yes (as noted above) Attending Groups: Yes Review of Systems Acute medical concerns: No Mental Status Exam Mental Status Exam Narrative: Alert, oriented, in no acute distress. Casually dressed. Hygiene/hygiene good. No tics, tremors, psychoagitation or neurovegetative retardation. Eye contact good. Mood depressed, anxious. Affect brighter than expected, subdued. Speech normal, without pressure or latency. Thought content linear, coherent without FOI/FORTINO. Thought content ruminative, relevant to stressors. Passive SI without urge, intention or plan to harm self. Denies aggressive ideation or HI. No perceptual disturbance. Cognition grossly intact. Sensorium clear. Insight fair, judgment good. Diagnostics Vital Signs (24Hr): Vital Signs - 24 hr 03/05/23 11:42 Pulse Rate 88 Blood Pressure 92/62 BMI result Body Mass Index 34.9 Assessment & Plan Assessment & Plan (1) Post traumatic stress disorder: Status: Acute Code(s): F43.10 - Post-traumatic stress disorder, unspecified (2) CAMDEN (generalized anxiety disorder): Status: Acute Code(s): F41.1 - Generalized anxiety disorder (3) MDD (major depressive disorder), recurrent episode, severe: Qualifiers: Psychotic features: without psychotic features Qualified Code(s): F33.2 - Major depressive disorder, recurrent severe without psychotic features Status: Acute Code(s): F33.2 - Major depressive disorder, recurrent severe without psychotic features Plan continue Abilify 5 mg qd (given some mild side effects) will plan to titrate dose as tolerated start trazodone 50- 100 mg qhs PRN sleep take prazosin 2 mg at night continue current medicaitons. May consider adding ziprasidone PRN or switching if ABilify not tolerated Noted to have positive cocaine on UDS in 11/2022 WIll plan for labwork, CMP, HbA1c, UDS Patient educated on: diagnosis and medication risk/benefits Reason for contiued partial hosp. stay Substantial Risk for: harm to self Certification I certify that partial hospital treatment is medically necessary due to the symptoms and problems resulting from the patient's mental illness and the failure to treat the patient at the partial hospital level of care would likely result in the patient requiring inpatient psychiatric care which could not be prevented at a less intensive level of care. Total time managing care of this patient today __30__ minutes. Discharge Plan Discharge Attending provider: Elsa Diaz Medications: New trazodone 50 mg tablet 50 - 100 mg PO BEDTIME PRN (Reason: sleep) Qty: 14 0RF ondansetron HCl 4 mg tablet 4 mg PO Q8H Qty: 5 0RF Continued cetirizine 10 mg tablet 10 mg PO DAILY 30 Days Qty: 30 0RF naproxen [Naprosyn] 500 mg tablet 500 mg PO BID PRN (Reason: Pain, Moderate) 30 Days Qty: 60 0RF Rx Instructions: One tablet as needed in the morning and at bedtime for pain. gabapentin 600 mg tablet 600 mg PO TID Patient Comments: Patient stated she last took yesterday as it makes her drowsy. Medication education provided. citalopram 40 mg tablet 40 mg PO DAILY mirtazapine 30 mg tablet 30 mg PO BEDTIME prazosin 2 mg capsule 2 mg PO BEDTIME aripiprazole 5 mg Tablet 5 mg PO BEDTIME clonazepam 0.5 mg tablet 0.5 mg PO QD-TID PRN (Reason: panic attack) Qty: 30 0RF melatonin 3 mg tablet 6 mg PO BEDTIME PRN (Reason: insomnia) 30 Days Qty: 60 0RF albuterol sulfate [Ventolin HFA] 90 mcg/actuation HFA aerosol inhaler 2 puff INHALATION Q4H PRN (Reason: wheezing) Qty: 1 0RF Discontinued albuterol sulfate 90 mcg/actuation HFA aerosol inhaler 2 puff inhalation Q6H PRN (Reason: shortness of breath or wheezing) Qty: 6.7 0RF albuterol sulfate [Ventolin HFA] 90 mcg/actuation Hfa Aerosol Inhaler 2 puff inhalation RQ4H PRN (Reason: Shortness Of Breath/Wheezing) Qty: 6.7 0RF
--- NOTE | 2023-03-10 23:53 | PM.EVENT ---
Event Note Date of Service: 03/11/23 Event Note: Attempted to call to check in with patient who called out sick due to nausea and vomiting. No answer. Left VM msg (~2:30pm Mar 10) that I was calling to check in Again tried reaching out to patient twice, left message again at (~5:30pm Mar 11) about checking in regarding GI illness, advised to hold medication if she thinks this is causing the n/v (she had just started on Abilify on admission. she was prescribed 5 mg by op provider - just making sure this is not causing any untoward effects) Time Spent With Patient Time: Total time managing care of this patient today __5__ minutes.
--- NOTE | 2023-03-17 19:43 | HO.PHPPROGNO ---
Subjective Subjective Date of Service: 03/17/23 Reason For Visit: PTSD Interim History: Patient seen for follow-up. She was out sick a number of days last week and yesterday due to N/V. Reports asthma has been acting up. She suspects the n/v is related to this. She has not heard back from [facility] office so we called them back to check, told it was a 3 month wait, but requested to have her expedited given patient predicament being relcated to [facility], unable to return to her PCP in [place], and having active medical issues. She agrees to having her labs done this week, has hx of high blood sugar, FH diabetes, asthma exacerbation and ongoing N/V with no clear cause. Abilify is the only recent medication change which was started over 2 weeks ago, just prior to starting at [facility]. She complains of some restlessness but otherwise does not notice any improvement. Im hesistant to increase dose of ABilify what may be emerging aekethesia. I would prefer switching her to ziprasidone to target PTSD symptoms flashbacks, nightmares, paranoia and agitation. We also discussed discontinuing citalopram, given potential interaction wtih neuroleptics concerning for arrhythmias. Will plan to stop Abilify and start ziprasidone 20 mg BID. Cut down citalopram to 20 mg then discontinue and will start duloxetine 30 mg qd tomorrow. WIll titrate to BID quickly to avoid serotonin withdrawal from 40 mg citalopram. We will review her medication regime and may consider discontinuing trazodone, possibly switching her to diphenhydramine to mitigate polypharmacy risks, also may prove helpful for allergies and management for potential EPS, which patient has been educated on. Medication Compliance: Yes Side effects from medications: Yes (? as noted above) Review of Systems Acute medical concerns: Yes as noted above Mental Status Exam Mental Status Exam Narrative: Alert, oriented, in no acute distress. Casually dressed. Hygiene/hygiene good. No tics, tremors, psychoagitation or neurovegetative retardation. Eye contact good. Mood depressed, anxious. Affect brighter than expected, subdued. Speech normal, without pressure or latency. Thought content linear, coherent without FOI/FORTINO. Thought content ruminative, relevant to stressors. Passive SI without urge, intention or plan to harm self. Denies aggressive ideation or HI. No perceptual disturbance. Cognition grossly intact. Sensorium clear. Insight fair, judgment good. Diagnostics Vital Signs (24Hr): BMI result Body Mass Index 34.9 Assessment & Plan Assessment & Plan (1) Post traumatic stress disorder: Status: Acute Code(s): F43.10 - Post-traumatic stress disorder, unspecified (2) MDD (major depressive disorder), recurrent episode, severe: Qualifiers: Psychotic features: without psychotic features Qualified Code(s): F33.2 - Major depressive disorder, recurrent severe without psychotic features Status: Acute Code(s): F33.2 - Major depressive disorder, recurrent severe without psychotic features (3) CAMDEN (generalized anxiety disorder): Status: Acute Code(s): F41.1 - Generalized anxiety disorder Plan Lab slip to check baseline metabolic labs, HbA1c and LFTs/CMP --- appointment at [facility] for Mar 24 at 4pm Discontinue Abilify, switch to Geodon ---Start Geodon 20 mg this evening (with meal), if not sedated may repeat 20 mg at bedtime ---if not sedating start Geodon 20 mg qAM (w meal) ---pt educated on s/s EPS, and use of diphenhydramine 25-50 mg ---consider EKG for baseline QTc re:ongoing med management Discontinue citalopram, switch to duloxetine ---Reduce citalopram to 20 mg tonight, then off ---tomorrow start duloxetine 30 mg qd for 4-7 days, then increase to 30 mg BID for now continue other regular medications ---if Geodon effective, plan to discontinue trazodone and switch to diphenhydramine PRN sleep ---consider lowering mirtazapine to 15 mg qhs (more sedating) vs d/c mirt and incr HS dose of GBT (to reduce polypharm) Patient educated on: diagnosis and medication risk/benefits Informed Consent: understands Reason for contiued partial hosp. stay Substantial Risk for: rapid decompensation and med/psych decompensation Certification I certify that partial hospital treatment is medically necessary due to the symptoms and problems resulting from the patient's mental illness and the failure to treat the patient at the partial hospital level of care would likely result in the patient requiring inpatient psychiatric care which could not be prevented at a less intensive level of care. Total time managing care of this patient today _30___ minutes. Discharge Plan Discharge Attending provider: Elsa Diaz Medications: New trazodone 50 mg tablet 50 - 100 mg PO BEDTIME PRN (Reason: sleep) Qty: 14 0RF ondansetron HCl 4 mg tablet 4 mg PO Q8H Qty: 5 0RF ziprasidone HCl 20 mg capsule 20 mg PO BID Qty: 20 0RF Rx Instructions: give with food (meal/snack) duloxetine 30 mg capsule,delayed release(DR/EC) 30 mg PO BID Qty: 30 0RF Rx Instructions: take 1 capsule po daily for 4 days then increase to 1 capsule po BID Continued cetirizine 10 mg tablet 10 mg PO DAILY 30 Days Qty: 30 0RF naproxen [Naprosyn] 500 mg tablet 500 mg PO BID PRN (Reason: Pain, Moderate) 30 Days Qty: 60 0RF Rx Instructions: One tablet as needed in the morning and at bedtime for pain. gabapentin 600 mg tablet 600 mg PO TID Patient Comments: Patient stated she last took yesterday as it makes her drowsy. Medication education provided. mirtazapine 30 mg tablet 30 mg PO BEDTIME prazosin 2 mg capsule 2 mg PO BEDTIME clonazepam 0.5 mg tablet 0.5 mg PO QD-TID PRN (Reason: panic attack) Qty: 30 0RF melatonin 3 mg tablet 6 mg PO BEDTIME PRN (Reason: insomnia) 30 Days Qty: 60 0RF albuterol sulfate [Ventolin HFA] 90 mcg/actuation HFA aerosol inhaler 2 puff INHALATION Q4H PRN (Reason: wheezing) Qty: 1 0RF Held citalopram 40 mg tablet 40 mg PO DAILY Hold Instructions: taper off Discontinued albuterol sulfate 90 mcg/actuation HFA aerosol inhaler 2 puff inhalation Q6H PRN (Reason: shortness of breath or wheezing) Qty: 6.7 0RF albuterol sulfate [Ventolin HFA] 90 mcg/actuation Hfa Aerosol Inhaler 2 puff inhalation RQ4H PRN (Reason: Shortness Of Breath/Wheezing) Qty: 6.7 0RF aripiprazole 5 mg Tablet 5 mg PO BEDTIME
--- NOTE | 2023-03-18 13:16 | HO.PHP ---
PHP staff member followed up with Ivy after group two. Ivy explored with PHP staff if her insurance covers the remainder of time while here. PHP staff noted that she has coverage into March and encouraged her to be in attendance. Iyv mentioned that she hasn't been feeling well and is continuing to vomit and is uncertain why. Ivy also talked about the housing situation and how she received a letter from [facility] stating that she has 10 days to contact them. Ivy disclosed that they are seeking her court documents but she can't get them because she does not have an ID. Ivy voiced that she is awaiting for the [facility] to provider payment for the ID. PHP staff explored with Ivy if there is any way we can help. Ivy noted that she doesn't believe so but expressed a letter may help. PHP staff informed her she will follow up with the team if able to and suggested she talks to her OP therapist about that since she will be continuing with her if they need to contact. Ivy was receptive and mentioned she would still like one from here if possible. PHP staff was receptive.
--- NOTE | 2023-03-19 22:11 | HO.PHPPROGNO ---
Subjective Subjective Date of Service: 03/19/23 Reason For Visit: PTSD Interim History: Patient seen for follow-up today. Active issues, sinusitis/allergies. She is doing well with cross taper off Abilify, citalopram and on Geodon, duloxetine. Reports feeling more relaxed no anxiety today first day on Geodon 20 mg BID. Sleep still variable at night and is willing to increase dose to 40 mg Geodon at night. She has not been taking trazodone. We will discontinue and start diphenhydramine 50 mg PRN. Mood is okay, still don't care if a bus hits me , but denies any thoughts harming herself. She has been feeling better. Less irritable, appears brighter. Anticipates discharge tomorrow, will plan to refill scripts at that time. Medication Compliance: Yes Side effects from medications: No Attending Groups: Yes Review of Systems Acute medical concerns: No Mental Status Exam Mental Status Exam Narrative: Alert, oriented, in no acute distress. Casually dressed. Hygiene/hygiene good. No tics, tremors, psychoagitation or neurovegetative retardation. Eye contact good. Mood less depressed, anxious. Affect appropriate, congruent, full range, reactive. Speech normal, without pressure or latency. Thought content linear, coherent without FOI/FORTINO. Thought content ruminative, relevant to stressors. Passive SI without urge, intention or plan to harm self. Denies aggressive ideation or HI. No perceptual disturbance. Cognition grossly intact. Sensorium clear. Insight fair, judgment good. Diagnostics Vital Signs (24Hr): BMI result Body Mass Index 34.9 Assessment & Plan Assessment & Plan (1) Post traumatic stress disorder: Status: Acute Code(s): F43.10 - Post-traumatic stress disorder, unspecified (2) MDD (major depressive disorder), recurrent episode, severe: Qualifiers: Psychotic features: without psychotic features Qualified Code(s): F33.2 - Major depressive disorder, recurrent severe without psychotic features Status: Acute Code(s): F33.2 - Major depressive disorder, recurrent severe without psychotic features (3) CAMDEN (generalized anxiety disorder): Status: Acute Code(s): F41.1 - Generalized anxiety disorder Plan discontinue trazodone start diphenhydramine 50 mg (1-2 tabs) PRN sleep increase Geodon to 40 mg qHS continue Geodon 20 mg qAM continue duloxetine 30 mg qd x 4 days then increase to BID pt educated on s/s of serotonin w/d -->may need to increase duloxetine to BID (was d/c citalopram 40 mg 2 days ago) pt educated on s/s EPS, acute dystonia - may use diphenhydramine as PRN, aware to contact provider lab order to check HbA1c (elevated FBG 12/2022), other metabolic labs Lab order for routine EKG obtain baseline QTc (=for medication considerations (starting treatment on ziprasidone) Patient educated on: diagnosis and medication risk/benefits Informed Consent: understands Reason for contiued partial hosp. stay Substantial Risk for: med/psych decompensation Certification I certify that partial hospital treatment is medically necessary due to the symptoms and problems resulting from the patient's mental illness and the failure to treat the patient at the partial hospital level of care would likely result in the patient requiring inpatient psychiatric care which could not be prevented at a less intensive level of care. Total time managing care of this patient today __40__ minutes. Discharge Plan Discharge Attending provider: Elsa Diaz Medications: New ondansetron HCl 4 mg tablet 4 mg PO Q8H Qty: 5 0RF duloxetine 30 mg capsule,delayed release(DR/EC) 30 mg PO BID Qty: 30 0RF Rx Instructions: take 1 capsule po daily for 4 days then increase to 1 capsule po BID ziprasidone HCl 40 mg capsule 40 mg PO QPM Qty: 15 0RF Rx Instructions: give with food (meal/snack) diphenhydramine HCl 50 mg capsule 50 - 100 mg PO BEDTIME PRN (Reason: sleep) Qty: 30 0RF Saline Mist 0.65 % aerosol,spray 2 spray intranasal QID PRN (Reason: nasal congestion) Qty: 45 0RF Continued cetirizine 10 mg tablet 10 mg PO DAILY 30 Days Qty: 30 0RF naproxen [Naprosyn] 500 mg tablet 500 mg PO BID PRN (Reason: Pain, Moderate) 30 Days Qty: 60 0RF Rx Instructions: One tablet as needed in the morning and at bedtime for pain. gabapentin 600 mg tablet 600 mg PO TID Patient Comments: Patient stated she last took yesterday as it makes her drowsy. Medication education provided. mirtazapine 30 mg tablet 30 mg PO BEDTIME prazosin 2 mg capsule 2 mg PO BEDTIME clonazepam 0.5 mg tablet 0.5 mg PO QD-TID PRN (Reason: panic attack) Qty: 30 0RF ziprasidone HCl 20 mg capsule 20 mg PO BID Qty: 30 0RF Rx Instructions: give with food (meal/snack); take one capsule po daily in AM; take one capsule po daily PRN agitation albuterol sulfate [Ventolin HFA] 90 mcg/actuation HFA aerosol inhaler 2 puff INHALATION Q4H PRN (Reason: wheezing) Qty: 1 0RF melatonin 3 mg tablet 6 mg PO BEDTIME PRN (Reason: insomnia) 30 Days Qty: 60 0RF Discontinued albuterol sulfate 90 mcg/actuation HFA aerosol inhaler 2 puff inhalation Q6H PRN (Reason: shortness of breath or wheezing) Qty: 6.7 0RF albuterol sulfate [Ventolin HFA] 90 mcg/actuation Hfa Aerosol Inhaler 2 puff inhalation RQ4H PRN (Reason: Shortness Of Breath/Wheezing) Qty: 6.7 0RF citalopram 40 mg tablet 40 mg PO DAILY Hold Instructions: taper off aripiprazole 5 mg Tablet 5 mg PO BEDTIME Stand Alone Forms: Patient Portal Discharge page Patient Education: Depression (DC), Post Traumatic Stress Disorder (DC)
--- NOTE | 2023-03-20 13:34 | HO.PHP ---
9:15 AM: Ivy informed PHP staff member that she wasn't feeling well and the only reason she came in was to complete the discharge paperwork. PHP staff member was receptive and informed Ivy she will let the med provider know so she meets with her first and then noted that she needs to meet with her as well after the first group is completed. Ivy was receptive.
--- NOTE | 2023-03-20 21:26 | P.PNPSP_ITS ---
Subjective Subjective Date of Service: 03/20/23 Reason For Visit: PTSD Interim History: Patient seen for follow-up today, anticipating discharge at the end of the program. Reports feeling tired today, did not sleep well last night. Says she was feeling anxious about leaving the program, feels it has been really helpful having daily structure. She was also thinking about her health and upcoming appointments. (As previously mentioned, she was recently seen at [facility], where she was examined and had lab work done, reportedly negative STIs). She was given referrals for pelvic ultrasound 03/23, mammogram on 04/03 and follow up lab work on 04/02 as well as the appointment at [facility] for a new PCP on 03/24. She complains of stuffy head, constant nasal congestion says her allergies are getting worse at the senior living. She keeps her place clean, but the general envir onment is misael, has a lot of allergens and generally poorly kept by people staying there. She notices symptoms improve when she leaves the senior living. TShe endorses occasional phlegm, cough which improvies with albuterol inhaler. SHe denies any current SOB, denies chest pain. She reports very low humidity at the senior living due to the heating being on high, which aggravates her nose and believes this may be contributing to vomiting in the AM, feeling dehydrated. She denies any bowel changes, says there were no concerns on her last colonoscopy. Pelvic pain is on lower right has become more consistent and bothersome and is looking forward to U/S and getting these problems addressed with new PCP next week, she has hx of uterine cysts s/p JOSE ROBERTO, is a cancer survivor. She is agreeable to getting routine EKG done to establish baseline QTc now that she is starting on treatment with ziprasidone, for ongoing medication management. She has still not gone for the lab work that we ordered last week, due to the AM n/v which she missed a few days at the program. She agrees to go in the morning tomorrow. She reports her mood is ok , she denies feeling depressed, appetite is intact, energy has improved with overall improvements in sleep. She denies any alcohol or substance use. She denies any active SI, insists she would never harm myself , but then adds she still doesnt care either way whether she woke up tomorrow or not - despite maintaining a humorous demeanor about her ambivalence - she insists this does not mean I am suicidal and adds that she has disagreed with past reports by clinicians calling this passive SI . She is organized, motivated and future-oriented. She has her associate media planner and shows me all her upcoming appointments and information and resources she has gathered. She says that once she gets her medical issues dealt with she could like to look for some work, noting that she is very smart, talented and organized, and feels she has a lot to offer. In general she appears brighter and more engaged. She reports the medication changes have been helpful. She feels the Geodon has been effective in treating PTSD symptoms and is generally feeling less anxious and more relaxed. Reports greater ease at navigating her environment, has not been isolating. Sleep has improved as well. She is tolerating the prazosin which she had not been taking regularly before. Geodon is at 40 mg BID, although may be contributing to tiredness, she could alternatively split dose as 20 mg in AM and 60 mg at night if better tolerated. She denies any tightness or stiffness in face, jaw, neck. We again reviewed s/s of EPS and pt is aware to contact provider for any issues. She continues to tolerate the switch to duloxetine which is at 30 mg BID, we will hold there and outpatient provider can consider whether further titration is warranted. She has been discontinued from Abilify (concerns for activation, worsening anxiety), citalopram and trazodone (cardiac risks/drug-drug inte ractions w Geodon), switched to Benadry prn sleep, which may also help with allergies, and helpful for EPS. She spoke with her psychiatrist yesterday who is reportedly happy with the med changes and will follow-up again in 2 weeks. She also spoke with her therapist this week. Medication Compliance: Yes Side effects from medications: No Attending Groups: Yes Review of Systems Acute medical concerns: Yes as noted above Mental Status Exam Mental Status Exam Narrative: Alert, oriented, in no acute distress. Casually dressed. Hygiene/hygiene good. No tics, tremors, psychoagitation or neurovegetative retardation. Pleasant, cooperative, well-related. Eye contact good. Mood is ok , less anxious. Affect bright, full range, reactive. Speech normal, without pressure or latency. Thought content linear, coherent without FOI/FORTINO. Thought content ruminative, relevant to stressors. Endorses ambivalence about life, but denies any thoughts of giving up on life, denies any thoughts of harming self. Denies aggressive ideation or HI. No perceptual disturbance. Cognition grossly intact. Sensorium clear. Insight fair, judgment good. Diagnostics Vital Signs (24Hr): BMI result Body Mass Index 34.9 Assessment & Plan Assessment & Plan (1) Post traumatic stress disorder: Status: Acute Code(s): F43.10 - Post-traumatic stress disorder, unspecified (2) CAMDEN (generalized anxiety disorder): Status: Acute Code(s): F41.1 - Generalized anxiety disorder (3) MDD (major depressive disorder), recurrent episode, severe: Qualifiers: Psychotic features: without psychotic features Qualified Code(s): F33.2 - Major depressive disorder, recurrent severe without psychotic features Status: Acute Code(s): F33.2 - Major depressive disorder, recurrent severe without psychotic features Plan Discharge from [facility] continue regular medications as noted further medication management deferred to outpatient provider Dr. Johnson, next appointment 03/31 @ 3:40pm continue in therapy referred to [facility] [place] - [address], first appointment 03/24 pending labwork (pt given lab slip last week) to check metabolic labs - CMP, lipid panel, HbA1c order given for EKG, routine - for baseline QTc for medication considerations (on ziprasidone) MEDICATION LIST: duloxetine 30 mg BID Geodon 80 mg/d (split 20/60 or 40 BID) diphehydramine 50 mg qHS, with 50 mg PRN insomnia gabapentin 600 mg TID mirtazapine 30 mg qHS prazosin 2 mg qHS clonazepam 0.5 mg daily PRN anxiety other meds: cetirizine, naproxen, albuterol, saline nasal mist New medications: duloxetine, Geodon, diphenhydramine Med changes: clonazepam (decreased frequency) Patient no longer taking: citalopram, Abilify, trazodone DIAGNOSES AT DISCHARGE: PTSD, acute on chronic Generalized Anxiety Disorder MDD, recurrent, severe Cocaine use disorder, in remission Patient educated on: diagnosis, medication risk/benefits and substance abuse Guardian/Caregiver educated on: medical condition Informed Consent: understands Reason for contiued partial hosp. stay Substantial Risk for: stable for discharge Certification I certify that partial hospital treatment is medically necessary due to the symptoms and problems resulting from the patient's mental illness and the failure to treat the patient at the partial hospital level of care would likely result in the patient requiring inpatient psychiatric care which could not be prevented at a less intensive level of care. Total time managing care of this patient today __40__ minutes. Discharge Plan Discharge Attending provider: Elsa Diaz Medications: New ondansetron HCl 4 mg tablet 4 mg PO Q8H Qty: 5 0RF duloxetine 30 mg capsule,delayed release(DR/EC) 30 mg PO BID Qty: 30 0RF Rx Instructions: take 1 capsule po daily for 4 days then increase to 1 capsule po BID ziprasidone HCl 40 mg capsule 40 mg PO QPM Qty: 15 0RF Rx Instructions: give with food (meal/snack) diphenhydramine HCl 50 mg capsule 50 - 100 mg PO BEDTIME PRN (Reason: sleep) Qty: 30 0RF Saline Mist 0.65 % aerosol,spray 2 spray intranasal QID PRN (Reason: nasal congestion) Qty: 45 0RF Continued cetirizine 10 mg tablet 10 mg PO DAILY 30 Days Qty: 30 0RF naproxen [Naprosyn] 500 mg tablet 500 mg PO BID PRN (Reason: Pain, Moderate) 30 Days Qty: 60 0RF Rx Instructions: One tablet as needed in the morning and at bedtime for pain. gabapentin 600 mg tablet 600 mg PO TID Patient Comments: Patient stated she last took yesterday as it makes her drowsy. Medication education provided. mirtazapine 30 mg tablet 30 mg PO BEDTIME prazosin 2 mg capsule 2 mg PO BEDTIME clonazepam 0.5 mg tablet 0.5 mg PO QD-TID PRN (Reason: panic attack) Qty: 30 0RF ziprasidone HCl 20 mg capsule 20 mg PO BID Qty: 30 0RF Rx Instructions: give with food (meal/snack); take one capsule po daily in AM; take one capsule po daily PRN agitation albuterol sulfate [Ventolin HFA] 90 mcg/actuation HFA aerosol inhaler 2 puff INHALATION Q4H PRN (Reason: wheezing) Qty: 1 0RF melatonin 3 mg tablet 6 mg PO BEDTIME PRN (Reason: insomnia) 30 Days Qty: 60 0RF Discontinued albuterol sulfate 90 mcg/actuation HFA aerosol inhaler 2 puff inhalation Q6H PRN (Reason: shortness of breath or wheezing) Qty: 6.7 0RF albuterol sulfate [Ventolin HFA] 90 mcg/actuation Hfa Aerosol Inhaler 2 puff inhalation RQ4H PRN (Reason: Shortness Of Breath/Wheezing) Qty: 6.7 0RF citalopram 40 mg tablet 40 mg PO DAILY Hold Instructions: taper off aripiprazole 5 mg Tablet 5 mg PO BEDTIME Stand Alone Forms: Patient Portal Discharge page Patient Education: Depression (DC), Post Traumatic Stress Disorder (DC)
== END 2023-03-20 23:59 | disposition home or self-care (01) ==
LOC: HO.PHPA 11:30
PROVIDERS: Visit Provider Psychiatry & Neurology Psychiatry
DX: F43.10 Post-traumatic stress disorder, unspecified (principal); F41.1 Generalized anxiety disorder; F33.2 Major depressive disorder, recurrent severe without psychotic features; Z79.899 Other long term (current) drug therapy
CPT/HCPCS: 90791; 90853

== ENCOUNTER 2023-11-19 12:45 | Outpatient (AMB) | payer OTHER, SELFPAY ==
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
[2023-11-19 12:51] VITALS: BP 116/74; PULSE 68; O2SAT 98; BMI 31.8
== END 2023-11-19 13:51 | disposition home or self-care (01) ==
DX: M25.569 Pain in unspecified knee (principal); M25.519 Pain in unspecified shoulder; F41.8 Other specified anxiety disorders; F14.21 Cocaine dependence, in remission; F41.1 Generalized anxiety disorder; F33.2 Major depressive disorder, recurrent severe without psychotic features; R07.9 Chest pain, unspecified; J45.909 Unspecified asthma, uncomplicated; Z12.11 Encounter for screening for malignant neoplasm of colon
CPT/HCPCS: 96127; 99214

== ENCOUNTER 2024-01-12 14:10 | Outpatient (REF) | payer OTHER, SELFPAY ==
[2024-01-13 12:28] LABS: CT PCR NOT DETECTED (Not Detect.); NG PCR NOT DETECTED (Not Detect.)
[2024-01-13 13:02] LABS: Bacterial Vaginosis PCR POSITIVE (Negative); Candida Group PCR NOT DETECTED (Not Detect); Candida glab krusei PCR NOT DETECTED (Not Detect); Trichomonas vaginalis PCR NOT DETECTED (Not Detect)
[2024-01-15 07:37] LABS: HPV mRNA E6/E7 Not Detected (Not Detected)
== END 2024-01-12 14:11 | disposition home or self-care (01) ==
LOC: HO.LAB 14:10
PROVIDERS: Visit Provider Advanced Practice Midwife
DX: N89.8 Other specified noninflammatory disorders of vagina (principal); Z20.2 Contact with and (suspected) exposure to infections with a predominantly sexual mode of transmission; Z12.4 Encounter for screening for malignant neoplasm of cervix; Z90.710 Acquired absence of both cervix and uterus; R68.82 Decreased libido; N95.1 Menopausal and female climacteric states; N94.10 Unspecified dyspareunia
CPT/HCPCS: 0352U; 36415; 87491; 87591; 87624; 88175; 99386

== ENCOUNTER 2024-01-12 14:10 | Outpatient (AMB) | payer OTHER, SELFPAY ==
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
[2024-01-12 14:31] VITALS: BP 128/70; BMI 32.9
== END 2024-01-12 15:37 | disposition home or self-care (01) ==
PROVIDERS: Visit Provider Advanced Practice Midwife
DX: Z01.419 Encounter for gynecological examination (general) (routine) without abnormal findings (principal); R68.82 Decreased libido; N95.1 Menopausal and female climacteric states; N94.10 Unspecified dyspareunia
CPT/HCPCS: 99386

== ENCOUNTER 2024-01-20 12:48 | Outpatient (REF) | payer OTHER, SELFPAY ==
--- NOTE | ~2024-01-20 | US_ITS ---
EXAMINATION:US PELVIS TRANSABDOMINAL AND TRANSVAGINAL CLINICAL INFORMATION: Pelvic pain, h/o partial hysterectomy COMPARISON: No priors available. LMP: None FINDINGS: UTERUS: Uterus has been removed. No residual uterine mass. Normal vaginal stripe. ADNEXA: Normal Right ovary: Normal in size. Cystic structure likely dominant follicle right ovary 2.1 cm. Left ovary: Normal in size. Doppler exam: Normal Doppler flow identified in both ovaries. FREE FLUID: Trace amount of free fluid. OTHER FINDINGS: Incidental finding was made of fluid-filled structure in the bladder probably urachal cyst. 1 x 0.7 x 0.7 cm. The urethra appears slightly dilated 1.3 cm. US/US pelvic and transvaginal IMPRESSION: * Status post hysterectomy. * Cystic structure in the right ovary 2.1 cm probably dominant follicle. These are commonly normal physiologic, no follow-up imaging is indicated. * Incidental finding was made of a cystic structure in the bladder probably urachal cyst 1 cm. * The urethra appears slightly dilated 1.3 cm. Please correlate clinically. If there is a clinical suspicion consider urethrogram. Electronically signed by: Qian Leonard MD 03/03/2024 07:48 AM EST
== END 2024-01-20 12:49 | disposition home or self-care (01) ==
LOC: HO.US 12:48
PROVIDERS: Visit Provider Advanced Practice Midwife
DX: M25.519 Pain in unspecified shoulder (principal); M25.569 Pain in unspecified knee; Z12.39 Encounter for other screening for malignant neoplasm of breast; Z90.710 Acquired absence of both cervix and uterus; Z12.4 Encounter for screening for malignant neoplasm of cervix; R68.82 Decreased libido; N95.1 Menopausal and female climacteric states
CPT/HCPCS: 73030; 73562; 76830; 76856

== ENCOUNTER 2024-02-10 16:02 | Outpatient (AMB) | payer OTHER, SELFPAY ==
[2024-02-10 16:04] VITALS: BP 102/68; PULSE 89; O2SAT 99; BMI 32.0
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
== END 2024-02-10 16:40 | disposition home or self-care (01) ==
DX: Z00.00 Encounter for general adult medical examination without abnormal findings (principal); M25.512 Pain in left shoulder; F14.21 Cocaine dependence, in remission; F33.2 Major depressive disorder, recurrent severe without psychotic features; M25.561 Pain in right knee; Z12.39 Encounter for other screening for malignant neoplasm of breast; F41.1 Generalized anxiety disorder; F43.10 Post-traumatic stress disorder, unspecified; R35.0 Frequency of micturition; J45.909 Unspecified asthma, uncomplicated; M25.562 Pain in left knee

== ENCOUNTER → 2024-02-10 16:02 | Outpatient (BNVA) | payer OTHER, SELFPAY | DX: Z00.01 Encounter for general adult medical examination with abnormal findings (principal); M25.512 Pain in left shoulder; M25.561 Pain in right knee; M25.562 Pain in left knee; F14.21 Cocaine dependence, in remission; F41.1 Generalized anxiety disorder; F33.2 Major depressive disorder, recurrent severe without psychotic features; F43.10 Post-traumatic stress disorder, unspecified; R35.0 Frequency of micturition; J45.909 Unspecified asthma, uncomplicated | CPT/HCPCS: 96127; 99212; 99396 ==

== ENCOUNTER 2024-03-09 11:13 | Outpatient (AMB) | payer OTHER, SELFPAY ==
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
[2024-03-09 11:33] VITALS: BP 122/74; BMI 31.6
== END 2024-03-09 12:09 | disposition home or self-care (01) ==
LOC: HO.HWSM 11:13
PROVIDERS: Visit Provider Advanced Practice Midwife
DX: N94.10 Unspecified dyspareunia (principal); N95.1 Menopausal and female climacteric states; Z12.4 Encounter for screening for malignant neoplasm of cervix; Z90.710 Acquired absence of both cervix and uterus
CPT/HCPCS: 99213

== ENCOUNTER → 2024-03-09 11:13 | Outpatient (BNVA) | payer OTHER, SELFPAY | PROVIDERS: Visit Provider Advanced Practice Midwife | DX: Z12.4 Encounter for screening for malignant neoplasm of cervix (principal); R10.2 Pelvic and perineal pain; N94.10 Unspecified dyspareunia; N95.1 Menopausal and female climacteric states; Z90.710 Acquired absence of both cervix and uterus; Z59.01 Sheltered homelessness | CPT/HCPCS: 99212 ==

== ENCOUNTER 2024-05-10 14:28 | Outpatient (REF) | payer OTHER, SELFPAY | END 2024-05-10 14:29 | disposition home or self-care (01) | LOC: HO.HOSX 14:28 | PROVIDERS: Visit Provider Physician Assistant | DX: Z13.89 Encounter for screening for other disorder (principal) ==

== ENCOUNTER 2024-08-22 08:20 | Outpatient (REF) | payer OTHER, SELFPAY ==
--- NOTE | ~2024-08-22 | XR_ITS ---
CLINICAL HISTORY: M25.569 - Pain in unspecified knee --- Additional Notes or Special Instructions: bi lateral standing and sunrise Radiograph of the bilateral knees AP standing Radiographs of the right knee 1 view Comparison: None Findings: Right knee: Mild narrowing of the medial joint compartment. No acute fracture or dislocation. No loose ossific body. Left knee: Mild narrowing of the medial joint compartment. No acute fracture. No loose ossific body. Impression: 1. Right knee: No acute process. Mild/early arthritic changes. 2. Left knee: No acute process. Mild/early arthritic changes. This document has been electronically signed by: Maris Green DO on 08/23/2024 16:08:06
--- OUTSIDE RECORDS SUMMARY | 2024-08-23 08:35 | XMS_ITS | Clinical Summary ---
Author Organization [employer] [facility] ity Address [address] [place] [address] Care Team Providers Care Supervisor Belt And Link Assembly Name Role Phone Unavailable Primary Care Provider [...]
== END 2024-08-22 08:21 | disposition home or self-care (01) ==
LOC: HO.HOSX 08:20
PROVIDERS: Visit Provider Physician Assistant
DX: M17.11 Unilateral primary osteoarthritis, right knee (principal); M25.561 Pain in right knee; M25.562 Pain in left knee
CPT/HCPCS: 20610; 73560; 99202; J0665; J1100; J2003

== ENCOUNTER → 2024-08-22 11:58 | Outpatient (BNV) | payer OTHER, SELFPAY | PROVIDERS: Visit Provider Radiology Diagnostic Radiology | DX: M25.561 Pain in right knee (principal) | CPT/HCPCS: 73560 ==

== ENCOUNTER 2024-08-22 11:59 | Outpatient (AMB) | payer OTHER, SELFPAY ==
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
[2024-08-22 12:07] VITALS: BMI 31.6
--- OUTSIDE RECORDS SUMMARY | 2024-08-22 13:38 | XMS_ITS | Clinical Summary ---
Author Organization [employer] [facility] ity Address [address] [place] [address] Care Team Providers Care Senior Business Consultant Name Role Phone Unavailable Primary Care Provider Unavailabl e Social History Tobacco Use Types Packs/Day Years Used Date Smoking Tobacco: Never Assessed Comments Unknown Sex and Gender Information Value Date Recorded Sex Assigned at Not on file Legal Sex Female 3:44 PM EDT Gender Identity Not on file Sexual Orientation Not on file Plan of Treatment Health Maintenance Due Date Last Done Comments Breast Cancer Screening 1975 DTaP,Tdap,and Td Vaccines (1 - Tdap) 01/26/1995 Hepatitis B Vaccines (1 of 3 - 19+ 3-dose series) 01/26/1995 Cervical Cancer Screening: P ap Smear 01/26/1997 COVID-19 Vaccine ( - 2023-2 5 season) 2023 Colorectal Cancer Screening: Colonoscopy 01/28/2024 Depression Screening 01/28/2024 HIV Screening 01/28/2024 Hepatitis C Screening 01/28/2024 Social Influencers of Health Screening 01/28/2024 Influenza Vaccine (Season Ended) 2024 HIB Vaccines Aged Out No longer eligi ble based on patient's age to complete this topic HPV Vaccines Aged Out No longer eligi ble based on patient's age to complete this topic Hepatitis A Vaccines Aged Out No long er eligible based on patient's age to complete this topic IPV Vaccines Aged Out No longer eligi ble based on patient's age to complete this topic MMR Vaccines Aged Out No longer eligi ble based on patient's age to complete this topic Meningococcal ACWY Vaccine Aged Out N o longer eligible based on patient's age to complete this topic Meningococcal B Vaccine Aged Out No l onger eligible based on patient's age to complete this topic Pneumococcal Vaccine: Pediat rics (0 to 5 Years) and At-Risk Patients (6 to 64 Years) Aged Out No longer eligible b ased on patient's age to complete this topic RSV Immunization Patients Un marsha 20 months Aged Out No longer eligible b ased on patient's age to complete this topic Varicella Vaccines Aged Out No longer eligible based on patient's age to complete this topic
== END 2024-08-22 12:22 | disposition home or self-care (01) ==
LOC: HO.HOS 11:59
PROVIDERS: Visit Provider Orthopaedic Surgery
DX: M17.11 Unilateral primary osteoarthritis, right knee (principal)
CPT/HCPCS: 20610; 99203